=== PATIENT | female | born 1995 | race Caucasian/White ===

== ENCOUNTER 2017-10-26 17:47 | Emergency (ER) | payer BC ==
--- NOTE | 2017-10-26 18:14 | UC ---
Lower Extremity/Ankle HPI - HPI Summary HPI Summary: Patient stepped on a piece of glass left heel 10-14 days ago. Patient has continued pain in her heel she feels like she is limping when she walks but she was able to attend a trip to [place] with her class - History of Current Complaint Chief Complaint: HUMBERT[place]kin Stated Complaint: FOOT INJURY Time Seen by Provider: 10/26/17 18:02 Hx Obtained From: Patient Hx Last Menstrual Period: IUD ?: No Onset/Duration: Sudden Onset, Lasting Weeks - 2 Pain Intensity: 3 Pain Scale Used: 0-10 Numeric Aggravating Factor(s): Standing, Ambulation Alleviating Factor(s): Rest, Elevation Able to Bear Weight: Yes - Allergies/Home Medications Allergies/Adverse Reactions: Allergies Allergy/AdvReac Type Severity Reaction Status Date / Time No Known Allergies Allergy Verified 10/26/17 18:03 Home Medications: Home Medications Ibuprofen [Advil] 200 mg PO 10/26/17 [History] PMH/Surg Hx/FS Hx/Imm Hx Previously Healthy: No - patient has a pending surgery at [facility] on left foot/ankle - Surgical History Surgical History: None - Family History Known Family History: Positive: None - Social History Occupation: Student Lives: Dormitory/Roommates Alcohol Use: Weekly Substance Use Type: None Smoking Status (MU): Never Smoked Tobacco Review of Systems Constitutional: Negative Skin: Other - Healing wound and pain in left heel. Unable to palpate or visualize any obvious foreign bodies Eyes: Negative ENT: Negative Respiratory: Negative Cardiovascular: Negative Gastrointestinal: Negative Genitourinary: Negative Motor: Negative Neurovascular: Negative Musculoskeletal: Negative Neurological: Negative Psychological: Negative Is Patient Immunocompromised?: No All Other Systems Reviewed And Are Negative: Yes Physical Exam Triage Information Reviewed: Yes Appearance: Well-Appearing, No Pain Distress, Well-Nourished Vital Signs: Initial Vital Signs Temp 98.1 F 10/26/17 17:55 Pulse 85 10/26/17 17:55 Resp 16 10/26/17 17:55 BP 139/88 10/26/17 17:55 Pulse Ox 99 10/26/17 17:55 Vital Signs Reviewed: Yes Eye Exam: Normal Eyes: Positive: Conjunctiva Clear ENT Exam: Normal ENT: Positive: Normal ENT inspection, Hearing grossly normal. Negative: Trismus , Muffled voice, Hoarse voice Dental Exam: Normal Neck exam: Normal Neck: Positive: Supple, Nontender, No Lymphadenopathy Respiratory Exam: Normal Respiratory: Positive: Chest non-tender, Lungs clear, Normal breath sounds, No respiratory distress Cardiovascular Exam: Normal Cardiovascular: Positive: RRR, No Murmur, Pulses Normal, Brisk Capillary Refill Musculoskeletal Exam: Normal Musculoskeletal: Positive: Strength Intact, ROM Intact, No Edema Neurological Exam: Normal Neurological: Positive: Alert, Muscle Tone Normal Psychological Exam: Normal Skin Exam: Other Skin: Positive: Other - Healing wound left heel Diagnostics - Radiology No standard instances Xray Interpretation: No Acute Changes Radiology Interpretation Completed By: ED Physician, Radiologist - No radiopaque foreign bodies noted and left heel Lower Extremity Course/Dx - Course Course Of Treatment: Patient will follow with PCP in [place] when she returns home. And of the semester. Patient refused crutches encourage patient to continue soaking in warm soapy water Tylenol and ibuprofen for pain - Differential Dx/Diagnosis Provider Diagnoses: left heel laceration with possible retained F.B. Discharge - Sign-Out/Discharge Documenting (check all that apply): Discharge/Admit/Transfer - Discharge Plan Condition: Stable Disposition: HOME Patient Education Materials: Soft Tissue Foreign Body (ED) Referrals: No Primary Care Phys,NOPCP [Primary Care Provider] - Additional Instructions: On your x-rays today we do not see a foreign body in your foot. If you have continued discomfort I would encourage her to see the orthopedic physician in [place] stricture following up with and let them know of the issues so they could ultrasound your foot to look for the foreign body as well. In the meantime you can soak your foot in warm water Tylenol or ibuprofen for pain - Billing Disposition and Condition Condition: STABLE Disposition: HOME
[2017-10-26 18:22] VITALS: BP 139/88
--- NOTE | 2017-10-26 18:42 | RAD ---
HISTORY: Penetrating trauma, evaluate for foreign body COMPARISONS: None VIEWS: 3, Frontal, lateral, and oblique views of the left foot FINDINGS: BONE DENSITY: Normal. BONES: There is no displaced fracture. There is a talar beak along the anterior talus which can BE associated with tarsal coalition JOINTS: There is no arthropathy. ALIGNMENT: There is no dislocation. SOFT TISSUES: There is no radiopaque foreign body OTHER FINDINGS: None. IMPRESSION: 1. NO RADIOPAQUE FOREIGN BODY. 2. TALAR BEAK WHICH MAY INDICATE THE PRESENCE OF A TALOCALCANEAL COALITION. THERE IS NO OSSEOUS COALITION.
== END 2017-10-26 19:09 | disposition home or self-care (01) ==
LOC: UCEAST 17:47
DX: S91.312A Laceration without foreign body, left foot, initial encounter (principal); W22.8XXA Striking against or struck by other objects, initial encounter; Y93.9 Activity, unspecified; Y92.9 Unspecified place or not applicable
CPT/HCPCS: 99201; G0463